=== PATIENT | male | born 1995 | race Caucasian/White ===

== ENCOUNTER → 2021-03-06 09:46 | Outpatient (CLI) | payer OTHER, SELFPAY | PROVIDERS: Visit Provider Emergency Medicine | DX: U07.1 COVID-19 (principal) | CPT/HCPCS: C9803; U0003; U0005 ==

== ENCOUNTER 2024-06-12 11:06 | Outpatient (CLI) | payer OTHER, SELFPAY ==
--- NOTE | 2024-06-12 11:11 | XR_ITS ---
FINAL REPORT TECHNIQUE: 5 views CLINICAL HISTORY: LUMBAGO W/ SCIATICA COMPARISON: None FINDINGS: LUMBAR SPINE: AP, lateral and oblique views of the lumbar spine were obtained. There is no prior exam for comparison. There is no acute fracture or malalignment. Vertebral body height is preserved. Disc space height is preserved. Moderate facet sclerosis is present in the lower lumbar spine. No acute paraspinal abnormality. IMPRESSION: Moderate facet sclerosis of the lower lumbar spine, without an acute process visualized. Reviewed, Interpreted and Dictated by Elder Esquivel MD Transcribed by Kellie Loving Authenticated and [facility]
== END 2024-06-12 23:59 | disposition home or self-care (01) ==
LOC: RAD 11:09
PROVIDERS: PCP Family Medicine; Visit Provider Family Medicine
DX: M54.42 Lumbago with sciatica, left side (principal)
CPT/HCPCS: 72110